=== PATIENT | female | born 1985 | race Asian ===

== ENCOUNTER → 2016-09-09 | Outpatient (REF) | payer BC | LOC: M SFHCLERA 15:57 | PROVIDERS: ATTEND Family Medicine | DX: Z36 Encounter for antenatal screening of mother (principal); Z3A.01 Less than 8 weeks gestation of pregnancy ==

== ENCOUNTER → 2016-09-11 | Outpatient (REF) | payer BC | LOC: M SFHCLERA 15:32 | PROVIDERS: ATTEND Family Medicine | DX: Z3A.01 Less than 8 weeks gestation of pregnancy (principal) ==

== ENCOUNTER → 2016-09-18 | Outpatient (REF) | payer BC ==
[2016-09-18 19:53] LABS: INR 0.99
[2016-09-18 20:33] LABS: BASO # 0.1 K/mm3 (0.0-0.2); BASO % 1.2 % (0.0-1.0); EOS # 0.1 K/mm3 (0.0-0.50); EOS % 1.3 % (0.0-3.0); LARGE UNSTAINED CELL # 0.1 K/mm3 (0.0-0.4); LARGE UNSTAINED CELL % 1.3 % (0.0-4.0); LYMPH # 2.2 K/mm3 (1.5-4.5); MEAN CORPUSCULAR HEMOGLOBIN 31.6 pg (27.0-33.0); MEAN CORPUSCULAR HGB CONC 33.4 g/dl (32.0-36.5); MEAN CORPUSCULAR VOLUME 94.6 fl (80.0-96.0); MONO # 0.3 K/mm3 (0.0-0.8); NEUTROPHILS # 4.6 K/mm3 (1.8-7.7); NEUTROPHILS % 62.1 % (36.0-66.0); PLATELET COUNT, AUTOMATED 280 k/mm3 (150-450); RED CELL DISTRIBUTION WIDTH 11.2 % (11.5-14.5); WHITE BLOOD COUNT 7.4 K/mm3 (4.0-10.0)
== END ==
LOC: M SFHCLERA 15:36
PROVIDERS: ATTEND Family Medicine
DX: R23.8 Other skin changes (principal); O03.9 Complete or unspecified spontaneous abortion without complication; Z13.1 Encounter for screening for diabetes mellitus

== ENCOUNTER → 2016-12-19 | Outpatient (REF) | payer BC | LOC: M SFHCLERA 09:56 | PROVIDERS: ATTEND Family Medicine | DX: Z01.419 Encounter for gynecological examination (general) (routine) without abnormal findings (principal) | CPT/HCPCS: 87491; 87591; G0123 ==

== ENCOUNTER → 2017-02-27 | Outpatient (REF) | payer BC | LOC: M SFHCLERA 10:30 | PROVIDERS: ATTEND Family Medicine | DX: R21 Rash and other nonspecific skin eruption (principal) ==

== ENCOUNTER → 2017-04-09 | Outpatient (CLI) | payer BC ==
[2017-04-11 00:06] LABS: TISSUE TRANSGLUTAMINASE IgA <2 U/mL (0-3)
== END ==
LOC: M LAB 11:52
DX: K62.5 Hemorrhage of anus and rectum (principal)

== ENCOUNTER → 2017-04-23 | Outpatient (CLI) | payer BC ==
[2017-04-23 20:22] LABS: LUTEINIZING HORMONE 5.8 mIU/mL; PROLACTIN 10.9 NG/ML
[2017-04-24 10:01] LABS: PROGESTERONE 6.1 NG/ML
[2017-04-26 00:06] LABS: TESTOSTERONE FREE (DIRECT) 4.9 pg/mL (0.0-4.2)
== END ==
LOC: M WUC 16:52
DX: N93.8 Other specified abnormal uterine and vaginal bleeding (principal)

== ENCOUNTER → 2017-04-24 | Outpatient (CLI) | payer BC | LOC: M RAD 15:41 | DX: N93.8 Other specified abnormal uterine and vaginal bleeding (principal) ==

== ENCOUNTER → 2017-06-10 | Outpatient (CLI) | payer BC ==
[2017-06-10 14:05] LABS: HCG, SERUM QUANTITATIVE 124 MIU/ML
== END ==
LOC: M SMT 10:33
DX: Z32.01 Encounter for pregnancy test, result positive (principal)

== ENCOUNTER → 2017-06-22 | Outpatient (CLI) | payer BC ==
[2017-06-22 15:06] LABS: HCG, SERUM QUANTITATIVE 17461 MIU/ML
== END ==
LOC: M LAB 14:03
DX: Z34.81 Encounter for supervision of other normal pregnancy, first trimester (principal); Z3A.00 Weeks of gestation of pregnancy not specified
CPT/HCPCS: 84702

== ENCOUNTER → 2017-07-14 | Outpatient (CLI) | payer BC ==
[2017-07-14 19:06] LABS: BASO % 0.3 % (0.0-1.0); EOS % 0.3 % (0.0-3.0); HEMATOCRIT 46.6 % (36.0-47.0); HEMOGLOBIN 15.6 g/dl (12.0-15.5); IMMATURE GRANULOCYTE % 0.2 % (0-3.0); LYMPH # 2.1 10^3/uL (1.5-4.5); MEAN CORPUSCULAR HEMOGLOBIN 31.2 pg (27.0-33.0); MEAN CORPUSCULAR HGB CONC 33.5 g/dl (32.0-36.5); MEAN CORPUSCULAR VOLUME 93.2 fl (80.0-96.0); MONO # 0.6 10^3/uL (0.0-0.8); MONO % 5.1 % (0.0-5.0); NEUTROPHILS # 9.7 10^3/uL (1.8-7.7); NEUTROPHILS % 77.1 % (36.0-66.0); PLATELET COUNT, AUTOMATED 325 10^3/uL (150-450); RED CELL DISTRIBUTION WIDTH 11.7 % (11.5-14.5); WHITE BLOOD COUNT 12.6 10^3/uL (4.0-10.0)
[2017-07-14 20:11] LABS: CHLAMYDIA DNA AMPLIFICATION NEGATIVE (NEGATIVE); GC DNA AMPLIFICATION NEGATIVE (NEGATIVE)
[2017-07-16 09:42] LABS: RUBELLA IgG QUALITATIVE IMMUNE (IMMUNE)
[2017-07-16 09:44] LABS: HBsAg Prenatal NEGATIVE (NEGATIVE)
[2017-07-16 10:09] LABS: HEPATITIS C VIRUS ABY INDEX < 0.0 INDEX (<0.8)
[2017-07-16 10:11] LABS: HIV 1&2 SCREEN CENTAUR NEGATIVE (NEGATIVE)
== END ==
LOC: M SMT 11:45
DX: Z3A.09 9 weeks gestation of pregnancy (principal); Z34.81 Encounter for supervision of other normal pregnancy, first trimester
CPT/HCPCS: 86762

== ENCOUNTER → 2017-09-26 | Outpatient (CLI) | payer BC | LOC: M RAD 09:03 | DX: O30.041 Twin pregnancy, dichorionic/diamniotic, first trimester (principal) | CPT/HCPCS: 76811 ==

== ENCOUNTER → 2017-10-24 | Outpatient (CLI) | payer BC | LOC: M RAD 09:18 | DX: O30.042 Twin pregnancy, dichorionic/diamniotic, second trimester (principal); Z36.89 Encounter for other specified antenatal screening; Z3A.23 23 weeks gestation of pregnancy | CPT/HCPCS: 76816 ==

== ENCOUNTER → 2017-11-18 | Outpatient (CLI) | payer BC ==
[2017-11-18 19:46] LABS: BASO % 0.2 % (0.0-1.0); EOS # 0.1 10^3/uL (0.0-0.50); EOS % 0.5 % (0.0-3.0); HEMATOCRIT 41.7 % (36.0-47.0); HEMOGLOBIN 13.5 g/dl (12.0-15.5); IMMATURE GRANULOCYTE % 1.2 % (0-3.0); LYMPH # 1.6 10^3/uL (1.5-4.5); LYMPH % 12.7 % (24.0-44.0); MEAN CORPUSCULAR HEMOGLOBIN 32.1 pg (27.0-33.0); MEAN CORPUSCULAR HGB CONC 32.4 g/dl (32.0-36.5); MEAN CORPUSCULAR VOLUME 99.3 fl (80.0-96.0); MONO # 0.8 10^3/uL (0.0-0.8); MONO % 5.9 % (0.0-5.0); NEUTROPHILS # 10.2 10^3/uL (1.8-7.7); NEUTROPHILS % 79.5 % (36.0-66.0); PLATELET COUNT, AUTOMATED 272 10^3/uL (150-450); RED CELL DISTRIBUTION WIDTH 11.9 % (11.5-14.5); WHITE BLOOD COUNT 12.8 10^3/uL (4.0-10.0)
[2017-11-18 19:57] LABS: GLUCOSE CHALLENGE TEST 1 HOUR 99 MG/DL (LESS THAN 140)
== END ==
LOC: M SMT 13:26
DX: O30.042 Twin pregnancy, dichorionic/diamniotic, second trimester (principal); Z3A.00 Weeks of gestation of pregnancy not specified
CPT/HCPCS: 82950

== ENCOUNTER → 2017-11-21 | Outpatient (CLI) | payer BC | LOC: M RAD 09:57 | DX: Z36.9 Encounter for antenatal screening, unspecified (principal); O30.042 Twin pregnancy, dichorionic/diamniotic, second trimester; Z3A.26 26 weeks gestation of pregnancy | CPT/HCPCS: 76816 ==

== ENCOUNTER → 2017-12-05 | Outpatient (CLI) | payer BC | LOC: M RAD 10:14 | DX: O30.042 Twin pregnancy, dichorionic/diamniotic, second trimester (principal); Z3A.28 28 weeks gestation of pregnancy | CPT/HCPCS: 76819 ==

== ENCOUNTER → 2017-12-12 | Outpatient (CLI) | payer BC | LOC: M RAD 09:58 | DX: O30.042 Twin pregnancy, dichorionic/diamniotic, second trimester (principal); O32.2XX2 Maternal care for transverse and oblique lie, fetus 2; Z3A.31 31 weeks gestation of pregnancy | CPT/HCPCS: 76815 ==

== ENCOUNTER → 2017-12-19 | Outpatient (CLI) | payer BC | LOC: M RAD 09:50 | DX: O30.042 Twin pregnancy, dichorionic/diamniotic, second trimester (principal) | CPT/HCPCS: 76817 ==

== ENCOUNTER 2017-12-20 17:00 | Outpatient (CLI) | payer BC ==
[2017-12-20] MEDS: LACTATED RINGER'S 1000 ML IV (17:53)
[2017-12-20 18:08] LABS: HEMATOCRIT 40.5 % (36.0-47.0); HEMOGLOBIN 13.9 g/dl (12.0-15.5); MEAN CORPUSCULAR HEMOGLOBIN 32.3 pg (27.0-33.0); MEAN CORPUSCULAR HGB CONC 34.3 g/dl (32.0-36.5); MEAN CORPUSCULAR VOLUME 94.2 fl (80.0-96.0); PLATELET COUNT, AUTOMATED 234 10^3/uL (150-450); RED CELL DISTRIBUTION WIDTH 11.9 % (11.5-14.5); WHITE BLOOD COUNT 11.9 10^3/uL (4.0-10.0)
[2017-12-20] MEDS: BETAMETHASONE SOLUSPAN 6MG/ML INJ 5ML (J0702) IM (18:08)
[2017-12-20] MEDS: TERBUTALINE SULFATE 1 MG/ML VIAL (J3105) SC ×2 (18:09→19:52)
[2017-12-20] MEDS: LR 1,000 ML IV (18:15)
[2017-12-20] MEDS ORDERED: diphenhydrAMINE 25 MG CAP PO (20:00)
[2017-12-21] MEDS: LR 1,000 ML IV (02:15)
[2017-12-21] MEDS: TERBUTALINE SULFATE 1 MG/ML VIAL (J3105) SC (08:10)
[2017-12-21] MEDS: BETAMETHASONE SOLUSPAN 6MG/ML INJ 5ML (J0702) IM (16:01)
== END 2017-12-21 16:35 | disposition home or self-care (01) ==
LOC: M LDO 17:00
DX: O47.03 False labor before 37 completed weeks of gestation, third trimester (principal); O99.52 Diseases of the respiratory system complicating childbirth; J45.909 Unspecified asthma, uncomplicated; O99.343 Other mental disorders complicating pregnancy, third trimester; F41.9 Anxiety disorder, unspecified; F32.9 Major depressive disorder, single episode, unspecified; Z3A.31 31 weeks gestation of pregnancy
CPT/HCPCS: J3105

== ENCOUNTER 2018-01-07 08:05 | Inpatient (IN) | payer BC ==
[2018-01-07] MEDS: LACTATED RINGER'S 1000 ML IV (09:48)
[2018-01-07] MEDS: TERBUTALINE SULFATE 1 MG/ML VIAL (J3105) SC (11:23)
[2018-01-07 12:46] LABS: HEMATOCRIT 41.3 % (36.0-47.0); HEMOGLOBIN 14.3 g/dl (12.0-15.5); MEAN CORPUSCULAR HEMOGLOBIN 32.6 pg (27.0-33.0); MEAN CORPUSCULAR HGB CONC 34.6 g/dl (32.0-36.5); MEAN CORPUSCULAR VOLUME 94.3 fl (80.0-96.0); PLATELET COUNT, AUTOMATED 224 10^3/uL (150-450); RED BLOOD COUNT 4.38 10^6/uL (4.00-5.40); RED CELL DISTRIBUTION WIDTH 12.1 % (11.5-14.5); WHITE BLOOD COUNT 13.3 10^3/uL (4.0-10.0)
[2018-01-07] MEDS: LR 1,000 ML IV ×2 (13:36→17:22)
[2018-01-07] MEDS: DOCUSATE SODIUM 100 MG CAP PO (18:27)
[2018-01-08] MEDS: TERBUTALINE SULFATE 1 MG/ML VIAL (J3105) SC ×2 (01:57→05:34)
[2018-01-08] MEDS: PENICILLIN G POTASSIUM IV 5 MU in D5W MINI-BAG PLUS 100 ML IV (05:00)
[2018-01-08] MEDS: BETAMETHASONE SOLUSPAN 6MG/ML INJ 5ML (J0702) IM (05:34)
[2018-01-08 08:46] LABS: HEMATOCRIT 36.2 % (36.0-47.0); HEMOGLOBIN 12.5 g/dl (12.0-15.5); MEAN CORPUSCULAR HEMOGLOBIN 32.6 pg (27.0-33.0); MEAN CORPUSCULAR HGB CONC 34.5 g/dl (32.0-36.5); MEAN CORPUSCULAR VOLUME 94.3 fl (80.0-96.0); PLATELET COUNT, AUTOMATED 182 10^3/uL (150-450); RED BLOOD COUNT 3.84 10^6/uL (4.00-5.40)
[2018-01-08] MEDS: DOCUSATE SODIUM 100 MG CAP PO (08:58)
[2018-01-08] MEDS: PENICILLIN G POTASSIUM IV 2.5 MU in APPROPRIATE DILUENT 1 EA IV ×2 (08:58→13:59)
[2018-01-08] MEDS ORDERED: FENTANYL 2MCG/ML ROPIVACAINE 0.2% IN 0.9% NACL 200ML IVBAG As Ordered (14:33)
[2018-01-08] MEDS ORDERED: ONDANSETRON 4MG/2ML VIAL (J2405) IV ×4 (15:30→20:45)
[2018-01-08] MEDS ORDERED: EPIDURAL COMMENT XX (15:30)
[2018-01-08] MEDS ORDERED: NALOXONE INJ 0.4 MG/1 ML VIAL (J2310) IV ×3 (15:30→19:04)
[2018-01-08] MEDS: FENTANYL/ROPIVACAINE/NACL BAG 200 ML EPIDURAL (15:30)
[2018-01-08] MEDS ORDERED: EPIDURAL/PCA KEYS XX (15:30)
[2018-01-08] MEDS ORDERED: diphenhydrAMINE INJ 50MG/ML VIAL (J1200) IV (15:30)
[2018-01-08] MEDS ORDERED: REFRIGERATOR IV KEYS XX (15:30)
[2018-01-08] MEDS ORDERED: ePHEDrine SULFATE 25 MG/5 ML(5MG/ML) SYRINGE IV (15:30)
[2018-01-08] MEDS ORDERED: OXYTOCIN 30 UNITS IN 0.9% NaCl 500ML IV BAG (J2590) As Ordered ×2 (17:01→19:30)
[2018-01-08] MEDS ORDERED: ceFAZolin 2 GM/D5W 50 ML IV BAG (J0690 PER 500MG) As Ordered (18:46)
[2018-01-08] MEDS ORDERED: BICITRA 30ML SOLN UDC As Ordered (18:46)
[2018-01-08] MEDS: BICITRA 30ML SOLN UDC PO (18:52)
[2018-01-08] MEDS ORDERED: NALBUPHINE HCL 10 MG/ML AMP (J2300) IV (19:04)
[2018-01-08] MEDS ORDERED: METOCLOPRAMIDE INJ 10MG/2ML VIAL (J2765) IV ×2 (19:04→20:45)
[2018-01-08] MEDS: OXYTOCIN DRIP 30 UNITS in APPROPRIATE DILUENT 1 EA IV (19:30)
[2018-01-08] MEDS ORDERED: PERCOCET 5MG/325MG TAB PO ×2 (19:45)
[2018-01-08] MEDS ORDERED: ANUSOL HC CREAM 30GM TOP (19:45)
[2018-01-08] MEDS ORDERED: DOCUSATE SODIUM 100 MG CAP PO (19:45)
[2018-01-08] MEDS ORDERED: MOM 30ML SUSPENSION UDC PO (19:45)
[2018-01-08] MEDS ORDERED: RHOGAM 300 MCG (1500 IU) INJ (J2790) IM (19:45)
[2018-01-08] MEDS ORDERED: MEASLES,MUMPS,RUBELLA VACCINE INJ (MMR-II) (90707) SC (19:45)
[2018-01-08] MEDS ORDERED: miSOPROStol 200 MCG TAB (S0191) As Ordered (19:49)
[2018-01-08] MEDS: miSOPROStol 200 MCG TAB (S0191) PR (19:50)
[2018-01-08] MEDS ORDERED: MEPERIDINE INJ 25 MG/ML VIAL (J2175) IV (20:45)
[2018-01-08] MEDS ORDERED: fentaNYL 100 MCG/2 ML INJECTION (J3010) IV (20:45)
[2018-01-08] MEDS ORDERED: ACETAMINOPHEN 500 MG TAB As Ordered (20:48)
[2018-01-08] MEDS ORDERED: fentaNYL 100 MCG/2 ML INJECTION (J3010) As Ordered (21:21)
[2018-01-08] MEDS: LR 1,000 ML IV (21:50)
[2018-01-09] MEDS: KETOROLAC 30 MG/ML VIAL (J1885) IV ×3 (00:43→13:19)
[2018-01-09] MEDS: LR 1,000 ML IV (03:47)
[2018-01-09 07:34] LABS: HEMATOCRIT 31.5 % (36.0-47.0); HEMOGLOBIN 10.6 g/dl (12.0-15.5); MEAN CORPUSCULAR HEMOGLOBIN 32.1 pg (27.0-33.0); MEAN CORPUSCULAR HGB CONC 33.7 g/dl (32.0-36.5); MEAN CORPUSCULAR VOLUME 95.5 fl (80.0-96.0); PLATELET COUNT, AUTOMATED 151 10^3/uL (150-450); WHITE BLOOD COUNT 16.7 10^3/uL (4.0-10.0)
[2018-01-09] MEDS: PRENATAL VITAMINS CHEWABLE TABLET PO (07:54)
[2018-01-09] MEDS: IBUPROFEN 800 MG TAB PO (20:14)
[2018-01-10] MEDS: IBUPROFEN 800 MG TAB PO ×3 (05:07→21:10)
[2018-01-10] MEDS: PRENATAL VITAMINS CHEWABLE TABLET PO (09:00)
[2018-01-10] MEDS: ACETAMINOPHEN 500 MG TAB PO (16:40)
[2018-01-11] MEDS: IBUPROFEN 800 MG TAB PO ×2 (05:26→13:49)
[2018-01-11] MEDS: PRENATAL VITAMINS CHEWABLE TABLET PO (08:07)
== END 2018-01-11 13:55 | disposition home or self-care (01) | DRG 540 ==
LOC: M LDO 08:05 → M LDI 01-08 03:18 → M OBS 01-08 21:45
PROVIDERS: Advanced Practice Midwife
PROC: 10D00Z1 Extraction of Products of Conception, Low, Open Approach (ICD-10-PCS; principal; 2018-01-08 18:57)
DX: O32.4XX0 Maternal care for high head at term, not applicable or unspecified (principal); O60.14X0 Preterm labor third trimester with preterm delivery third trimester, not applicable or unspecified; Z37.2 Twins, both liveborn; Z3A.33 33 weeks gestation of pregnancy; O32.6XX2 Maternal care for compound presentation, fetus 2; O99.820 Streptococcus B carrier state complicating pregnancy; O30.043 Twin pregnancy, dichorionic/diamniotic, third trimester

== ENCOUNTER → 2018-06-05 | Outpatient (REF) | payer BC ==
[~2018-06-05] MED LIST: COLA100C5 PO; IBUP1TAB7 PO; MAGN400C PO; MAPA500T2 PO; METR0.7533 TOP; MOM30SS PO; PERCOCET PO; PRENTAB9 PO; UNIS25TA3 PO
[2018-06-05 17:10] LABS: FREE T4 0.85 NG/DL (0.76-1.46); THYROID STIMULATING HORMONE 1.7 uIU/ML (0.358-3.740)
[2018-06-05 17:26] LABS: BASO % 0.7 % (0.0-1.0); EOS # 0.1 10^3/uL (0.0-0.50); EOS % 1.9 % (0.0-3.0); HEMATOCRIT 41.3 % (36.0-47.0); HEMOGLOBIN 13.4 g/dl (12.0-15.5); LYMPH # 1.6 10^3/uL (1.5-4.5); LYMPH % 27.7 % (24.0-44.0); MEAN CORPUSCULAR HEMOGLOBIN 30.2 pg (27.0-33.0); MEAN CORPUSCULAR HGB CONC 32.4 g/dl (32.0-36.5); MONO # 0.4 10^3/uL (0.0-0.8); MONO % 6.7 % (0.0-5.0); NEUTROPHILS # 3.7 10^3/uL (1.8-7.7); NEUTROPHILS % 62.8 % (36.0-66.0); PLATELET COUNT, AUTOMATED 299 10^3/uL (150-450); RED BLOOD COUNT 4.44 10^6/uL (4.00-5.40); WHITE BLOOD COUNT 5.8 10^3/uL (4.0-10.0)
== END ==
LOC: M SFHCLERA 12:12
PROVIDERS: ATTEND Family Medicine
DX: L65.9 Nonscarring hair loss, unspecified (principal)